=== PATIENT | female | born 1985 | race American Indian/Alaskan Native ===

== ENCOUNTER 2021-10-31 04:41 | Emergency (ER) | payer BC, MEDICAID ==
[2021-10-31 05:43] VITALS: PULSE 72
[2021-10-31 05:44] LABS: ANION GAP 14.4 mEq/L (7-13); CHLORIDE,CL 100 mmol/L (98-107); SODIUM,NA 138 mmol/L (136-145)
[2021-10-31 06:18] VITALS: BP 123/72
== END 2021-10-31 06:30 | disposition home or self-care (01) ==
LOC: DL.ED 04:41
DX: R06.02 Shortness of breath (principal); U07.1 COVID-19; R00.2 Palpitations; Z86.16 Personal history of COVID-19
CPT/HCPCS: 36415; 71045; 80053; 83605; 83880; 84484; 85025; 85379; 86140; 93005; 99285-25